=== PATIENT | female | born 1970 | race Caucasian/White ===

== ENCOUNTER 2022-11-14 18:18 | Emergency (ER) | payer OTHER, SELFPAY ==
[2022-11-14 18:20] VITALS: BP 124/74; PULSE 62; RESP 16; TEMP 36.8; O2SAT 100
--- NOTE | 2022-11-14 19:45 | DI.RAD_ITS ---
Exam(s) XR WRIST RT COMPLETE EXAM: XR WRIST RT COMPLETE CLINICAL HISTORY: wrist pain. TECHNIQUE: 2D digital imaging was performed. Three views. COMPARISON: No exams were available for comparison FINDINGS: BONES: Fracture extending transversely through the distal radial metaphysis. Dorsal angulation and m ild comminution. No visible separation at the articular surface. Distal ulna and carpal bones appea r intact. No bony destructive lesion is seen. JOINTS: The carpal bones are normally aligned. SOFT TISSUE: Swelling. IMPRESSION: Distal radial fracture. DATA REPOSITORY: RADIATION DOSE DELIVERED:
[2022-11-14] MEDS: oxyCODONE 5 MG TAB PO (20:28)
--- NOTE | 2022-11-14 21:07 | DI.VRAD_ITS ---
PROCEDURE INFORMATION: Exam: XR Right Wrist Exam date and time: 11/14/2022 8:41 PM Age: 52 years old Clinical indication: Other: Pain and swelling, fall TECHNIQUE: Imaging protocol: Radiologic exam of the right wrist. Views: 3 or more views. COMPARISON: No relevant prior studies available. FINDINGS: Bones/joints: Mildly comminuted transverse fracture of the distal radius approximally 8 mm proximal to the articular surface. Moderate dorsal angulation of the major distal fragment. No definite intra-articular extension. Distal ulna and carpal bones appear intact and normally aligned. Soft tissues: Normal. IMPRESSION: Dorsally angulated distal radius fracture Dictated and Authenticated by: Nima Reed MD. Ordering:JASON Doty MD
--- NOTE | 2022-11-14 22:33 | W.ED.GENAD ---
Discharge Plan Disposition Patient Disposition: Home Discharge Details Clinical Impression: Fracture of wrist Primary Care Provider: [facility]Local ED Provider: Lalitha Aviles Home Meds and New Rx's Prescriptions: New oxycodone 5 mg capsule 5 mg PO Q6H PRNQty: 10 0RF Continued atorvastatin 20 mg Tablet 20 mg PO DAILY AM liothyronine 5 mcg Tablet See Rx Instructions .ROUTE .COMPLEX Rx Instructions: 5 mcg orally every Sunday, Sunday, Sunday. levothyroxine 75 mcg Tablet 75 mcg PO DAILY fluoxetine 20 mg Capsule 20 mg PO DAILY Discharge Instructions Instructions: Wrist Fracture in Adults (ED) Additional Instructions: Take the oxycodone as needed, this can be addictive, use sparingly and do not drive for 8 hours after taking this medication Take ibuprofen and Tylenol as needed for discomfort Ice, elevate, keep your splint in place and dry, if the splint becomes wet, it will need to be removed Please follow-up with orthopedics, I have placed a referral but I do recommend calling them tomorrow morning to schedule an appointment and let them know that you have had a wrist fracture with angulation and reduction, I am giving you a copy of the CD Please be reevaluated should you develop strength or sensation changes or skin discoloration I am also listing our orthopedics affiliated with the hospital so you have follow-up if necessary Referrals: J Carlos Hanna MD [ [facility] STAFF PHYSICIAN] - Discharge Data Discharge Date/Time-TO BE ENTERED AT DEPARTURE: 11/14/22 23:07 Medical Decision Making 52-year-old female with dorsally angulated radius and ulnar fracture on right, per x-ray review, results from radiologist reviewed where available Hematoma block was performed with 6 cc of lidocaine without epinephrine, 1%, direct manipulation and traction was then used to reduce fracture, patient placed in a splint which she tolerated without incident There is still some mild dorsal angulation, patient lives in [place] so I will place referral to her requested orthopedist, Dr. Kady Borrero, care management note for referral in [place] was placed Oxycodone supplied, risk of addiction reviewed Return precautions discussed and patient expressed understanding discharged home neurovascularly intact Medical Records Medical records reviewed: Yes I reviewed the patient's medical records. Lab Data Lab results reviewed: Yes I reviewed the patient's lab results. HPI General Date/Time Provider Initiated Documentation: 11/14/22 18:53. HPI Narrative: 52-year-old female presents with a wrist injury, fall on outstretched wrist at the dog after tripping on her dog. Denies any additional injuries. denies strength or sensation changes. Related Data Home Medications Medication Instructions Recorded Confirmed atorvastatin 20 mg tablet 20 mg PO DAILY AM 11/14/22 11/14/22 fluoxetine 20 mg capsule 20 mg PO DAILY 11/14/22 11/14/22 levothyroxine 75 mcg tablet 75 mcg PO DAILY 11/14/22 11/14/22 liothyronine 5 mcg tablet See Rx Instructions .Route .COMPLEX 11/14/22 11/14/22 oxycodone 5 mg capsule 5 mg PO Q6H PRN #10 caps 11/14/22 Previous Rx's Medication Instructions Recorded oxycodone 5 mg capsule 5 mg PO Q6H PRN #10 caps 11/14/22 Allergies Allergy/AdvReac Type Severity Reaction Status Date / Time No Known Allergies Allergy Unverified 11/14/22 18:25 General Stated Complaint: Orthopedic ANJUM: 4 PFSH All Active Problems (Updated 11/14/22 @ 22:38 by ALEXSANDRA Rubio) Fracture of wrist (Acute) Social History Smoking/Tobacco Use Status: Never Smoking risk assessment performed?: Yes Alcohol Intake: current Alcohol Intake frequency: a few times a week Alcohol type: wine and hard liquor Drug use: Never Substance use type: does not use Housing: house Do you feel safe at home: Yes Do you feel safe in your relationship?: Yes Additional Social history: at bedside Exam Const General: cooperative, comfortable and no acute distress HENLA Head: normal to inspection Eyes Pupils: PERRL Resp Effort & Inspection: normal respiratory effort Auscultation: clear to auscultation bilaterally Cardio Rate: regular rate Rhythm: regular rhythm Neuro General: patient alert and patient oriented x3 Extrem Other: Left wrist with deformity, neurovascularly intact, no tenderness to left hand or left elbow, no open fracture Course Vital Signs Vital signs: Vital Signs Temperature 36.8 C 11/14/22 18:20 Pulse 62 11/14/22 18:20 Respiratory Rate 16 11/14/22 18:20 Blood Pressure 124/74 11/14/22 18:20 Pulse Oximetry 100 11/14/22 18:20 Temperature 36.8 C 11/14/22 18:20 Temperature Source Skin 11/14/22 18:20 Pulse 62 11/14/22 18:20 Respiratory Rate 16 11/14/22 18:20 Respiratory Effort Normal, Non-Labored 11/14/22 18:30 Blood Pressure 124/74 11/14/22 18:20 Blood Pressure Position Sitting 11/14/22 18:20 Pulse Oximetry 100 11/14/22 18:20 Oxygen Delivery Method Room Air 11/14/22 18:20 Oxygen Flow Rate 0 11/14/22 18:20 Pain Level 6 11/14/22 18:32 Procedures Orthopedic Fracture Reduction Fracture #1: Time Out Performed: Yes Side: right Fracture Reduction Location: radius and ulna Analgesia: hematoma block Technique: direct manipulation, traction/counter-traction and finger traps Post Reduction X-rays Demonstrate: acceptable reduction Post-reduction neuro exam: intact Post-reduction vascular exam: intact Splint Applied: Yes Patient Tolerated Procedure: well Additional Comments: Neurovascularly intact pre and postprocedure PAWSS Have you Been Recently Intoxicated or Drunk Within the Last 30 days?: No Have you Ever Experienced Previous Episodes of Alcohol Withdrawal?: No Have you ever Experienced Withdrawal Seizures?: No Have you ever Experienced Delirium Tremens(DT)s?: No Have you ever undergone Alcohol Rehabilitation Treatment (i.e, inpt ot outpatient treatment programs)?: No Have you ever Experienced Blackouts?: No Have you ever Combined Alcohol with other Downers within the last 90 days?: No Have you ever Combined Alcohol with any other Substance of Abuse during the last 90 days?: No Positive Blood Alcohol level on Presentation? [PCS.BAL]: No Evidence of Increased Autonomic Activity (i.e. HR>120, tremor, sweating, agitation, nausea)?: No Result: 0
--- NOTE | 2022-11-14 22:34 | NUR.NOTE ---
Pt placed on care management list for ortho follow up with Dr. Nagel in [place] Nursing Note:
--- NOTE | 2022-11-14 23:09 | DI.VRAD_ITS ---
PROCEDURE INFORMATION: Exam: XR Right Wrist Exam date and time: 11/14/2022 10:40 PM Age: 52 years old Clinical indication: Other: Wrist pain TECHNIQUE: Imaging protocol: Radiologic exam of the right wrist. Views: 3 or more views. COMPARISON: CR XR WRIST RT COMPLETE 11/14/2022 8:41 PM FINDINGS: Bones/joints: There is decreased dorsal angulation of the major distal radial fragment. Distal radius fracture faintly visualized with casting material in place. No other interval change. Soft tissues: Normal. IMPRESSION: Improved alignment of distal radius fracture Dictated and Authenticated by: Nima Reed MD. Ordering:JASON Doty MD
--- NOTE | 2022-11-15 13:20 | PDOC.CMACT ---
Date of service: 11/15/22 Time of Service: 13:21 Care Management Activity Note Activity Note Text Activity Note Text: Mckenzie is seen in the ED for a wrist fracture. At the request of ED provider, CM coordinates a referral to Wai Chaudhary MD, of the [place] [place] [facility] to assist Mckenzie in obtaining a follow up appointment.
== END 2022-11-14 23:07 | disposition home or self-care (01) ==
PROVIDERS: Emergency Provider Physician Assistant
DX: S52.501A Unspecified fracture of the lower end of right radius, initial encounter for closed fracture (principal); S52.601A Unspecified fracture of lower end of right ulna, initial encounter for closed fracture; W01.0XXA Fall on same level from slipping, tripping and stumbling without subsequent striking against object, initial encounter
CPT/HCPCS: 99284; 25605; 73110